=== PATIENT | male | born 1950 | race Hispanic/Latino ===

== ENCOUNTER → 2019-09-05 | Outpatient (CLI) | payer MEDICARE ==
[~2019-09-05] MED LIST: IOPAMIDOL 370 MG/ML 200 ML INFUS..BTL INJ ONE; SODIUM CHLORIDE 0.9% 500ML 500 ML ONE; SODIUM CHLORIDE 0.9% 50ML 50 ML ONE
[2019-09-05 08:05] LABS: CREATININE, SERUM 1.34 mg/dL (0.72-1.25)
--- NOTE | 2019-09-05 09:33 | Diagnostic Imaging Report ---
Abdomen and Pelvis CTA WITH IV CONTRAST. INDICATION: Abdominal aortic aneurysm COMPARISON: None. TECHNIQUE: Abdomen and pelvis were scanned utilizing a multidetector helical scanner from the lung base to the pubic symphysis after administration of IV contrast. Coronal and sagittal reformations were obtained. 3D post-processing of the images was performed, and the post-processed images were used in interpretation. CTA protocol was performed. IV CONTRAST: 100mL of Isovue 370 ORAL CONTRAST: None RADIATION DOSE: Total DLP: 563.2 mGy*cm FINDINGS: VESSELS: There are moderate calcified and noncalcified atherosclerotic plaques in the aorta and its major branches. There is no evidence of a flap within the aorta to suggest a dissection. The celiac artery, superior mesenteric artery, and inferior mesenteric artery are patent. There is a single right renal artery and a single left renal artery, both of which are patent. There is a fusiform infrarenal abdominal aortic aneurysm measuring up to 3.5 x 3.2 cm (AP x TR). No evidence of aortic rupture or impending rupture. NON-VASCULAR: LOWER THORAX: The visualized lungs are clear. There are no pleural effusions. HEPATOBILIARY: No focal hepatic lesions. No biliary ductal dilatation. The gallbladder appears unremarkable. SPLEEN: No splenomegaly. PANCREAS: No focal masses or ductal dilatation. ADRENALS: No adrenal nodules. KIDNEYS/URETERS: No hydronephrosis, stones, or solid mass lesions. 1.1 cm left midpole simple renal cyst. PELVIC ORGANS/BLADDER: Prostatomegaly to 5.1 cm. Mild posterior indentation of the bladder. PERITONEUM / RETROPERITONEUM: No free air or fluid. LYMPH NODES: No lymphadenopathy. GI TRACT: Mild diverticulosis. No CT evidence of diverticulitis. No abnormal bowel thickening. No bowel obstruction. Normal appendix. BONES AND SOFT TISSUES: No acute osseous injury. No suspicious lytic or blastic lesions. Sternotomy wires in place. IMPRESSION: Fusiform infrarenal abdominal aortic aneurysm measures up to 3.5 x 3.2 cm. No evidence of rupture or impending rupture. Prostatomegaly. RECOMMENDATIONS: Recommend follow-up CTA evaluation of infrarenal abdominal aortic aneurysm every 2 years to assess for stability. Signed by: Dmitry Botello MD on 09/05/2019 9:30 AM
== END ==
LOC: CT 07:15
PROVIDERS: ATTEND Internal Medicine Cardiovascular Disease
DX: I71.4 Abdominal aortic aneurysm, without rupture (principal); N40.0 Benign prostatic hyperplasia without lower urinary tract symptoms
CPT/HCPCS: 36415; 74174; 82565; 84520; J7040; Q9967